=== PATIENT | female | born 1960 | race Caucasian/White ===

== ENCOUNTER → 2021-10-21 | Outpatient (CLI) | payer MEDICARE ==
[~2021-10-21] MED LIST: CYCL10TA9; DOXY100C2 PO; EST.625T; HYDR-3714 PO; LORA1TAB; METR500T PO; MTX2.5T; NFPRILOC40; OXYC-272; OXYC10TA7; PREG50C; ROSU10TA12; SSD50T TOP; SULF1TAB35 PO; [UNRECOGNIZED DRUG - OTHER]
--- NOTE | 2021-10-21 11:38 | Diagnostic Imaging Report ---
INDICATION: PAIN COMPARISON: None. Findings: Multiple radiographic views of the right knee were obtained. Extraosseous calcification is identified projecting superior to the lateral margins of the tibial spine. These are not seen on the additional views. No other unexpected radiopaque foreign bodies are seen. Mild to moderate suprapatellar joint effusion is also noted. Osseous structures are intact. Joint spaces are maintained. IMPRESSION: 1. Mild to moderate suprapatellar joint effusion, but no other evidence of acute fracture or dislocation of the right knee. 2. Extraosseous calcifications only well visualized on the PA view of the knee. Findings could be on the basis of calcified intra-articular loose bodies. Chondrocalcinosis or vascular calcifications may have a similar appearance. Dictated by: Dictated on workstation # [id number]
== END ==
LOC: ORTHO 08:59
PROVIDERS: ATTEND Orthopaedic Surgery
DX: M25.561 Pain in right knee (principal)
CPT/HCPCS: 73564

== ENCOUNTER → 2021-11-04 | Outpatient (CLI) | payer MEDICARE | LOC: ORTHO 14:00 | PROVIDERS: ATTEND Orthopaedic Surgery | DX: M25.561 Pain in right knee (principal) | CPT/HCPCS: 20610 ==

== ENCOUNTER → 2021-12-09 | Outpatient (CLI) | payer MEDICARE | LOC: ORTHO 17:10 | PROVIDERS: ATTEND Orthopaedic Surgery | DX: M25.561 Pain in right knee (principal) | CPT/HCPCS: 99213 ==

== ENCOUNTER 2021-12-17 05:38 | Outpatient (CLI) | payer MEDICARE ==
[~2021-12-17] VITALS: Ht 160 cm; Wt 64.6 kg
== END 2021-12-17 09:23 | disposition home or self-care (01) ==
LOC: PREOP 05:38
PROVIDERS: ATTEND Surgery
DX: Z01.818 Encounter for other preprocedural examination (principal); Z12.11 Encounter for screening for malignant neoplasm of colon; K21.9 Gastro-esophageal reflux disease without esophagitis

== ENCOUNTER → 2021-12-23 | Outpatient (CLI) | payer MEDICARE ==
[~2021-12-23] MED LIST changes: +MELO10CA3 PO; +OMEP40CA6 PO
== END ==
LOC: ORTHO 10:00
PROVIDERS: ATTEND Orthopaedic Surgery
DX: M25.561 Pain in right knee (principal)
CPT/HCPCS: 99213

== ENCOUNTER 2021-12-24 08:59 | Day surgery (SDC) | payer MEDICARE ==
[~2021-12-24] VITALS: Ht 160 cm; Wt 64.6 kg
[2021-12-24] VITALS (7 sets, daily range): BP systolic 84–122; BP diastolic 50–89
[~2021-12-24 08:59] MED LIST changes: -MELO10CA3 PO; -OMEP40CA6 PO
[2021-12-24] MEDS ORDERED: LACTATED RINGERS 1,000 ML IV STA (09:21)
[2021-12-24] MEDS ORDERED: HURRICAINE EXT TUBE (BENZOCAINE) XX PRN (09:30)
[2021-12-24] MEDS ORDERED: MELO10CA3 PO (09:46)
[2021-12-24] MEDS ORDERED: PROPOFOL INJECTION 50 ML IV ONE (10:57)
[2021-12-24] MEDS ORDERED: MIDAZOLAM 2 MG/2 ML (VERSED) VIAL ONE (10:57)
--- NOTE | 2021-12-24 11:04 | Progress Note-Pre Operative ---
Pre-Operative Progress Note Date of Available H&P: Dec 24, 2021 Date H&P Reviewed: Dec 24, 2021 Time H&P Reviewed: 10:30 History & Physical: No changes noted Pre-Operative Diagnosis: GERD, screening JANNET OQUENDO MD Dec 24, 2021 11:04
[2021-12-24] MEDS ORDERED: OMEP40CA6 PO (11:05)
--- NOTE | 2021-12-24 11:06 | Discharge Inst-Surgical ---
D/C Lap Instructions-KIDO New, Converted, or Re-Newed RX: RX on Chart Follow Up Activity as tolerated High Fiber Diet 25g or more per day Avoid Alcohol, Caffeine, Spicy [place] and Acid foods. Drink 64 fluid oz or more of fluids per day. Symptoms to Report: Fever over 101 degree F, Nausea/Vomiting If any problems/questions: Contact your physician or go to Emergency Room JANNET OQUENDO MD Dec 24, 2021 11:06
[2021-12-24] MEDS ORDERED: LIDOCAINE JELLY 2% 6 ML SYRINGE ONE (11:09)
[2021-12-24] MEDS ORDERED: LIDOCAINE JELLY 2% 6 ML SYRINGE MM PRN (11:15)
[2021-12-24] MEDS ORDERED: LIDOCAINE JELLY 2% 6 ML SYRINGE TOP ONE (11:15)
[2021-12-24] MEDS ORDERED: ONDANSETRON 4 MG/2 ML (SDV) Z0FRAN IVP PRN (11:15)
[2021-12-24] MEDS ORDERED: ONDANSETRON 4 MG (ZOFRAN) ORAL DISSOLVE TAB PO PRN (11:15)
--- NOTE | 2021-12-24 12:03 | Progress Note-Post Operative ---
Post-Operative Progess Note Surgeon (s)/Resource Economist (s) Surgeon JANNET OQUENDO MD Resource Economist: none Pre-Operative Diagnosis GERD, screening Post-Operative Diagnosis reflux esophagitis(grade C), small-mod HH(2.5cm), moderate gastritis. chronic stage 2 ext and int hemorrrhoids, remaining rectum, sigmoid, ileocolonic anastamosis normal. Procedure & Operative Findings Date of Procedure 12/24/21 Procedure Performed/Findings EGD wtih bx. colonoscopy Anesthesia Type mac Estimated Blood Loss Estimated blood loss (mL): minimal Specimens/Packing Specimens Removed ge jxn, antrum JANNET OQUENDO MD Dec 24, 2021 12:03
--- NOTE | 2021-12-24 17:27 | OPERATIVE REPORT ---
DATE OF SERVICE: 12/24/2021 ATTENDING PRIMARY CARE PHYSICIAN: [facility]. PREOPERATIVE DIAGNOSES: Gastroesophageal reflux disease, screening colonoscopy. POSTOPERATIVE DIAGNOSES: Reflux esophagitis, Craven grade C, small to moderate size hiatal hernia approximately 2.5 cm in size, moderate gastritis, chronic stage II external and internal hemorrhoids, normal rectum and what appeared to be the sigmoid colon with ileosigmoid anastomosis, which was normal. PROCEDURE: EGD with biopsy, colonoscopy. SURGEON: Jannet Oquendo MD. ANESTHESIA: Monitored anesthesia care. ESTIMATED BLOOD LOSS: Minimal. FINDINGS: Reflux esophagitis, Craven grade C, small to moderate size hiatal hernia approximately 2.5 cm in size, moderate gastritis, chronic stage II external and internal hemorrhoids, normal rectum and what appeared to be the sigmoid colon with ileosigmoid anastomosis, which was normal. DISPOSITION: The patient tolerated the procedure well. INDICATIONS: The patient is a 61-year-old female referred over to us for an EGD and colonoscopy. She has had a longstanding history of gastroesophageal reflux disease and we had been taking Nexium [id number]. However, due to place in the medication, she had to discontinue it. Since then, she has been just taking [id number] immediate acting antacids including Tums and Rolaids; however, this has become ineffective. She also states that her last colonoscopy was around 2002. At that time, she reports a history of having a perforated appendicitis and this was eventually removed; however, she then underwent a colonoscopy and was found to have some form of gangrenous colon, which sounds more consistent with some type of colonic portion and ischemia resulting in some form of subtotal colectomy and anastomosis. She does not report any major issues with diarrhea nor constipation as well as no red blood per rectum nor any dark tarry stools. DESCRIPTION OF PROCEDURE: The patient was brought to the endoscopy suite, laid in left lateral decubitus position. After adequate IV pain and sedative medications and monitored anesthesia care, the mouthpiece was applied. The endoscope was placed in the mouth, visualized the pharynx and hypopharyngeal region. Vocal cords, epiglottis and vallecula identified and appeared to be normal. The endoscope was gently intubated the esophageal opening and esophagus insufflated. The endoscope was then advanced to the first, second and third portion of esophagus at the level of the GE junction, a reflux esophagitis, Craven grade C identified. No ulcers or strictures identified and biopsies were taken with forceps with visualization of good hemostasis. The endoscope was then advanced into the stomach and endoscope retroflexed, visualizing a small to moderate size hiatal hernia approximately 2.5 cm in size. There was a moderate severity gastritis. No formal ulcerations, polyps, nor any neoplasms. A biopsy was taken of the antrum to rule out H. pylori with visualization of good hemostasis. The endoscope was then advanced to the pylorus and the first and second portion of the duodenum, which appeared normal with no ulcerations or any distal obstructions. The endoscope was then slowly withdrawn while taking a second look and suctioning of residual air with no additional findings. A digital rectal examination was performed, which revealed chronic stage II external and internal hemorrhoids, not actively edematous nor inflamed and no bleeding. Normal sphincter tone was felt and there were no palpable masses. The endoscope was then intubated into the anus and rectum gently insufflated. The endoscope was then advanced through the valves of Krishnamurthy of the rectum with no polyps or any neoplasms identified. We then proceeded through what appeared to be the sigmoid colon, may be a small portion of the descending colon and an area of the ileocolonic anastomosis, which appeared completely normal. There were no strictures. The endoscope was then advanced for approximately 20 cm into the small bowel with normal-appearing mucosa. The endoscope was then slowly withdrawn while taking a second look of suction of residual air with no additional findings. The patient tolerated the procedure well. We will recommend the necessary lifestyle and dietary accommodation including small and more frequent meals, avoiding to eating at night as well as head elevation while lying supine. She also needs to avoid caffeinated beverages, spicy, greasy and acidic foods. We will also start her on omeprazole 40 mg on a daily basis. We will also recommend continued medical management for good colonic and rectal health, which would encompass a high fiber diet with at least 25 grams of fiber daily to promote soft stools on a daily basis. She does have approximately distal part of her descending and sigmoid colon as well as the rectum still intact and due to this, there is always a chance for neoplastic development and we will recommend a followup colonoscopy in 10 years. Job ID: [id number] DocumentID: [id number] Dictated Date: 12/24/2021 11:55:36 Risk Officer Date: 12/24/2021 17:27:25 Dictated By: JANNET OQUENDO MD
== END 2021-12-24 12:35 | disposition home or self-care (01) ==
LOC: ENDO 08:59
PROVIDERS: ATTEND Surgery
DX: Z12.11 Encounter for screening for malignant neoplasm of colon (principal); K29.50 Unspecified chronic gastritis without bleeding; K21.00 Gastro-esophageal reflux disease with esophagitis, without bleeding; K44.9 Diaphragmatic hernia without obstruction or gangrene; K64.1 Second degree hemorrhoids; K64.8 Other hemorrhoids; F17.200 Nicotine dependence, unspecified, uncomplicated